=== PATIENT | female | born 1980 | race Asian ===

== ENCOUNTER 2018-11-05 07:29 | Emergency (ER) | payer BC ==
[2018-11-05 08:08] LABS: Absolute Lymphocytes (CBC) 1.2 K/uL (0.7-4.9); Absolute Monocytes 0.2 K/uL (0.1-1.3); Absolute Neutrophil 1.9 K/uL (1.8-8.0); Basophils % 1.4 % (0-1.3); Eosinophils % 2.7 % (0-4.4); Lymphocytes % 35.4 % (15.3-44.8); MPV 8.2 fL (7.6-11.3); Monocytes % 5.1 % (3.3-12.3); RBC Red Blood Cell Count 3.46 M/uL (3.86-4.86)
[2018-11-05 08:21] LABS: Potassium 3.7 mmol/L (3.5-5.1)
--- NOTE | 2018-11-05 11:25 | RAD REPORT ---
EXAM DESCRIPTION: US - Transvaginal Study Probe - 11/05/2018 9:20 am CLINICAL HISTORY: VAGINAL BLEEDING Pelvic pain. COMPARISON: PELVIS dated 07/20/2010 FINDINGS: The uterus is normal in size, shape and echotexture. The uterus measures 8.4 x 5.1 x 4.9 c m. An oblong 1-2 cm slightly complex circumscribed lesion is seen in the cervical canal. The endometrial stripe measures 11 mm, mildly thickened. Both ovaries are normal in size, shape and echotexture. The right ovary measures 2.4 x 2.2 x 1.1 cm. The left ovary measures 2.3 x 1.2 x 1.2 cm. No ovarian or parovarian lesions. No adnexal masses. Normal Doppler blood flow was demonstrated to both ovaries. No significant pelvic ascites. IMPRESSION: An oblong 1-2 cm slightly complex rounded lesion in the cervical canal is noted.Differen tial would include a cervical fibroid, polyp or mass. Followup direct visualization may be of value.
--- NOTE | 2018-11-05 11:34 | ER ---
Nurse's Notes [facility] Name: Earlene Lamas Age: 38 yrs Sex: Female : 1980 Arrival Date: 11/05/2018 Time: 07:33 Bed 13 Private MD: Luis Fernando Santillan H Diagnosis: Dysfunctional Uterine Bleeding;Uterine Mass, NOS Presentation: 11/05 07:47 Presenting complaint: Patient states: was put on control pills after having iw painful periods, started having bleeding for a month, was told by Dr. Hill to stop pills for one week, yesterday was having heavier bleeding and mild cramping. Transition of care: patient was not received from another setting of care. Onset of symptoms was September 2018. Risk Assessment: Do you want to hurt yourself or someone else? Patient reports no desire to harm self or others. Initial Sepsis Screen: Does the patient meet any 2 criteria? No. Patient's initial sepsis screen is negative. Does the patient have a suspected source of infection? No. Patient's initial sepsis screen is negative. Care prior to arrival: None. 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 - Social history:: Smoking status: Patient/guardian denies using tobacco. - Ebola Screening: : Patient negative for fever greater than or equal to 101.5 degrees Fahrenheit, and additional compatible Ebola Virus Disease symptoms Patient denies exposure to infectious person Patient denies travel to an Ebola-affected area in the 21 days before illness onset No symptoms or risks identified at this time. Screenin:09 Abuse screen: Denies threats or abuse. Denies injuries from another. Nutritional jl7 screening: No deficits noted. Tuberculosis screening: No symptoms or risk factors identified. Fall Risk IV access (20 points). Total Elizondo Fall Scale indicates No Risk (0-24 pts). Assessment: 08:09 General: Appears in no apparent distress. uncomfortable, Behavior is calm, cooperative, jl7 appropriate for age. Pain: Complains of pain in suprapubic area, right lower quadrant and left lower quadrant Pain does not radiate. Pain currently is 0 out of 10 on a pain scale. at worst was 8 out of 10 on a pain scale. Quality of pain is described as crampy, Is intermittent. Neuro: Level of Consciousness is awake, alert, obeys commands, Oriented to person, place, time, situation. Cardiovascular: Patient's skin is warm and dry. Respiratory: Airway is patent Respiratory effort is even, unlabored, Respiratory pattern is regular, symmetrical. GI: No signs and/or symptoms were reported involving the gastrointestinal system. : pt denies burning with urination Reports vaginal bleeding that is bright red, with clots, heavy flow since x 1 month. EENT: Derm: Skin is pink, warm \T\ dry. Musculoskeletal: No signs and/or symptoms reported regarding the musculoskeletal system. 09:00 Reassessment: Patient appears in no apparent distress at this time. No changes from jl7 previously documented assessment. Patient and/or family updated on plan of care and expected duration. Pain level reassessed. Patient is alert, oriented x 3, equal unlabored respirations, skin warm/dry/pink. 10:00 Reassessment: Patient appears in no apparent distress at this time. Patient and/or jl7 family updated on plan of care and expected duration. Pain level reassessed. Patient is alert, oriented x 3, equal unlabored respirations, skin warm/dry/pink. 11:00 Reassessment: Patient appears in no apparent distress at this time. Patient and/or jl7 family updated on plan of care and expected duration. Pain level reassessed. Patient is alert, oriented x 3, equal unlabored respirations, skin warm/dry/pink. Vital Signs: 07:51 BP 102 / 63; Pulse 79; Resp 16; Temp 97.8(TE); Pulse Ox 100% on R/A; Weight 48.99 kg; iw Height 5 ft. 1 in. (154.94 cm); Pain 0/10; 09:18 BP 91 / 58; Pulse 76; Resp 12; Pulse Ox 98% on R/A; mh5 12:07 BP 98 / 68; Pulse 75; Resp 16 S; Pulse Ox 99% on R/A; jl7 07:51 Body Mass Index 20.41 (48.99 kg, 154.94 cm) ED Course: 07:33 Patient arrived in ED. mr 07:33 Luis Fernando Santillan DO is Private Physician. mr 07:45 Lu Bartlett RN is Primary Nurse. jl7 07:45 Sarmad Alexander MD is Attending Physician. ps1 07:50 Triage completed. iw 07:51 Arm band placed on. iw 08:09 Patient has correct armband on for positive identification. Bed in low position. Call jl7 light in reach. Side rails up X 1. Pulse ox on. NIBP on. Warm blanket given. 08:09 Initial lab(s) drawn, by me, sent to lab. Inserted saline lock: 20 gauge in right jl7 antecubital area, using aseptic technique. Blood collected. 09:17 Ultrasound completed. Patient tolerated well. sg3 09:18 Transvaginal Study Probe In Process Unspecified. EDMS 09:34 Urine --Ancillary Sent. 5 09:34 Urine Dipstick-Ancillary Sent. 5 09:43 Urine --Ancillary (enter results) Sent. 5 09:43 Urine Dipstick--Ancillary (enter results) Sent. 5 11:32 Nabeel Hill MD is Referral Physician. ps1 12:07 No provider procedures requiring assistance completed. IV discontinued, intact, jl7 bleeding controlled, No redness/swelling at site. Pressure dressing applied. Administered Medications: No medications were administered Outcome: 11:34 Discharge ordered by . ps1 12:07 Discharged to home ambulatory. jl7 12:07 Condition: stable 12:07 Discharge instructions given to patient, Instructed on discharge instructions, follow up and referral plans. medication usage, Demonstrated understanding of instructions, follow-up care, medications, Prescriptions given X 1. 12:12 Patient left the ED. jl7 Signatures: Dispatcher [employer] Gayathri Agarwal Khadra Garcia, RN RN Sheridan Villatoro 5 Lu Bartlett, AILYN RN 7 Sarmad Alexander MD MD ps1 Shonna Dennis sg3
--- NOTE | 2018-11-05 11:34 | EDPHYS ---
Physician Documentation [facility] Name: Earlene Lamas Age: 38 yrs Sex: Female : 1980 Arrival Date: 11/05/2018 Time: 07:33 Bed 13 Private MD: Luis Fernando Santillan H ED Physician Sarmad Alexander HPI: 11/05 07:57 This 38 yrs old Female presents to ER via Ambulatory with complaints of Vaginal ps1 Bleeding. 07:[address] Hill was started on a levonorgestrel taper. Improved initially, now ps1 having increased bleeding. Worse over the last couple of days. Now changing pads every 2 hours. States she has been lightheaded. Non-painful. . 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 - Social history:: Smoking status: Patient/guardian denies using tobacco. - Ebola Screening: : Patient negative for fever greater than or equal to 101.5 degrees Fahrenheit, and additional compatible Ebola Virus Disease symptoms Patient denies exposure to infectious person Patient denies travel to an Ebola-affected area in the 21 days before illness onset No symptoms or risks identified at this time. ROS: 07:57 Constitutional: Negative for fever, chills, and weight loss, Eyes: Negative for injury, ps1 pain, redness, and discharge, Cardiovascular: Negative for chest pain, palpitations, and edema, Respiratory: Negative for shortness of breath, cough, wheezing, and pleuritic chest pain, Abdomen/GI: Negative for abdominal pain, nausea, vomiting, diarrhea, and constipation, Back: Negative for injury and pain, MS/Extremity: Negative for injury and deformity, Skin: Negative for injury, rash, and discoloration, Psych: Negative for depression, anxiety, suicide ideation, homicidal ideation, and hallucinations. 07:57 : Positive for vaginal bleeding. 07:57 Neuro: Positive for lightheaded. Exam: 07:57 Constitutional: This is a well developed, well nourished patient who is awake, alert, ps1 and in no acute distress. Head/Face: Normocephalic, atraumatic. Eyes: Pupils equal round and reactive to light, extra-ocular motions intact. Lids and lashes normal. Conjunctiva and sclera are non-icteric and not injected. Chest/axilla: Normal chest wall appearance and motion. Nontender with no deformity. No lesions are appreciated. Cardiovascular: Regular rate and rhythm. No gallops, murmurs, or rubs. Normal PMI, no JVD. No pulse deficits. Respiratory: Lungs have equal breath sounds bilaterally, clear to auscultation and percussion. No rales, rhonchi or wheezes noted. No increased work of breathing, no retractions or nasal flaring. Abdomen/GI: Soft, non-tender, with normal bowel sounds. No distension or tympany. No guarding or rebound. No evidence of tenderness throughout. Skin: Warm, dry with normal turgor. Normal color with no rashes, no lesions, and no evidence of cellulitis. MS/ Extremity: Pulses equal, no cyanosis. Neurovascular intact. Full, normal range of motion. Neuro: Awake and alert, GCS 15, oriented to person, place, time, and situation. Cranial nerves II-XII grossly intact. Sensory grossly intact. Psych: Awake, alert, with orientation to person, place and time. Behavior, mood, and affect are within normal limits. Vital Signs: 07:51 BP 102 / 63; Pulse 79; Resp 16; Temp 97.8(TE); Pulse Ox 100% on R/A; Weight 48.99 kg; iw Height 5 ft. 1 in. (154.94 cm); Pain 0/10; 09:18 BP 91 / 58; Pulse 76; Resp 12; Pulse Ox 98% on R/A; mh5 12:07 BP 98 / 68; Pulse 75; Resp 16 S; Pulse Ox 99% on R/A; jl7 07:51 Body Mass Index 20.41 (48.99 kg, 154.94 cm) iw MDM: 08:19 Patient medically screened. ps1 11:35 Data reviewed: vital signs, nurses notes, lab test result(s), radiologic studies, and ps1 as a result, I will discharge patient. ED course: patient has undifferentiated mass in uterus, likely fibroid. Needs hysteroscopy. Will rx Megace for DUB. Refer back to Liz. Hgb stable. Stable for discharge. . 11/05 07:57 Order name: Basic Metabolic Panel; Complete Time: 08:22 ps1 11/05 07:57 Order name: CBC with Diff; Complete Time: 08:19 ps1 11/05 08:25 Order name: Urine Dipstick--Ancillary (enter results) ag 11/05 08:25 Order name: Urine --Ancillary (enter results) ag 11/05 08:25 Order name: Urine Dipstick-Ancillary EDHI 11/05 08:25 Order name: Urine --Ancillary EDHI 11/05 07:57 Order name: Urine Test (obtain specimen); Complete Time: 08:25 ps1 11/05 07:57 Order name: IV Saline Lock; Complete Time: 08:06 ps1 11/05 07:57 Order name: Labs collected and sent; Complete Time: 08:06 ps1 11/05 07:57 Order name: NPO; Complete Time: 08:06 ps1 11/05 07:57 Order name: Urine Dipstick-Ancillary (obtain specimen); Complete Time: 08:25 ps1 11/05 08:13 Order name: Transvaginal Study Probe; Complete Time: 11:28 EDMS Administered Medications: No medications were administered Disposition: 11/05/18 11:34 Discharged to Home. Impression: Dysfunctional Uterine Bleeding, Uterine Mass, NOS. - Condition is Stable. - Discharge Instructions: Uterine Fibroids, Dysfunctional Uterine Bleeding. - Medication Reconciliation Form, Thank You Letter, Antibiotic Education, Prescription Opioid Use form. - Follow up: Nabeel Hill MD; When: 1 week; Reason: Further diagnostic work-up, Recheck today's complaints, Continuance of care. Follow up: Emergency Department; When: As needed; Reason: Worsening of condition. - Problem is an ongoing problem. - Symptoms have worsened. Signatures: Dispatcher [employer] EDMS Khadra Garcia, RN Lu Guerra RN RN jl7 Sarmad Alexander MD MD ps1 Corrections: (The following items were deleted from the chart) 08:13 07:57 Transvaginal Ob+US.RAD.BRZ ordered. EDHI EDHI 12:12 11:34 11/05/2018 11:34 Discharged to Home. Impression: Dysfunctional Uterine Bleeding; jl7 Uterine Mass, NOS. Condition is Stable. Forms are Medication Reconciliation Form, Thank You Letter, Antibiotic Education, Prescription Opioid Use. Follow up: Nabeel Hill; When: 1 week; Reason: Further diagnostic work-up, Recheck today's complaints, Continuance of care. Follow up: Emergency Department; When: As needed; Reason: Worsening of condition. Problem is an ongoing problem. Symptoms have worsened. ps1
[2018-11-05 11:54] LABS: Urine Blood TRACE (NEG); Urine Glucose NEGATIVE (NEG); Urine Protein TRACE (NEG); Urine Specific Gravity >1.030 (1.005-1.030); Urine pH 5.5 (5.0-7.0)
== END 2018-11-05 12:12 | disposition home or self-care (01) ==
LOC: ER 07:29
DX: N93.8 Other specified abnormal uterine and vaginal bleeding (principal); N85.9 Noninflammatory disorder of uterus, unspecified; Z79.3 Long term (current) use of hormonal contraceptives
CPT/HCPCS: 36415; 76830; 80048; 81003; 81025; 85025; 99284

== ENCOUNTER 2018-11-10 09:38 | Day surgery (SDC) | payer BC ==
[2018-11-09 12:05] LABS: Absolute Lymphocytes (CBC) 1.7 K/uL (0.7-4.9); Absolute Monocytes 0.2 K/uL (0.1-1.3); Absolute Neutrophil 1.9 K/uL (1.8-8.0); Basophils % 1.1 % (0-1.3); Eosinophils % 1.2 % (0-4.4); Hematocrit 25.7 % (36.0-45.0); Lymphocytes % 42.5 % (15.3-44.8); MPV 8.3 fL (7.6-11.3); Monocytes % 6.1 % (3.3-12.3); RBC Red Blood Cell Count 2.78 M/uL (3.86-4.86)
--- NOTE | 2018-11-09 13:46 | PREOPHP ---
Date of Admission: 11/09/2018 History Of Present Illness: Ms. Lamas is a 38-year-old [place]i female, 3, para 3-0-0-3, who will be admitted for treatment of menorrhagia, prolapsed uterine leiomyomata. Ms. Lamas has had some difficulties with increasing cramping and discomfort, was placed on oral contraceptives for thi s, did not seem to respond, went to the emergency room. Ultrasound through them showed now a prolaps ed uterine leiomyomata. This is confirmed on office exam. Because of this, she will be admitted for excision of prolapsed leiomyomata. Hysteroscopy, D and C of the uterine endometrium. Past Medical History: Includes 3 prior vaginal deliveries without complications. She has also had b reast augmentation surgery and no other hospitalizations, accidents, illnesses, injuries. She has be en on oral contraceptives recently and Megace through the emergency room, although this has not made much of a difference in her bleeding. She is started on iron supplementation recently. Allergies: SHE HAS NO KNOWN ALLERGIES. Social History: She does not smoke. Family History: Noncontributory. Review of Systems: She reports no recent cough, cold, fever, or chills. No recent nausea or vomiting. She denies seein g breast lumps or breast knots. She denies any bowel or bladder issues. Other than vaginal bleeding , she has no other major complaints. Physical Examination: General: Petite [place] female, in no apparent distress. Neck: Supple without adenopathy or thyromegaly. Lungs: Clear. Cardiac: Regular rate and rhythm without murmurs. Breasts: Not examined. Abdomen: Nontender without organosplenomegaly. Pelvic: Normal female external genitalia. Vaginal wall is pink, rugated. Blood present. Speculum exam reveals prolapsed uterine leiomyomata. Bimanual, no abnormalities other than leiomyomata. Extremities: No cyanosis, clubbing, or edema. Impression: Menorrhagia, probably secondary to prolapsed leiomyomata. Plan: The patient will be admitted for excision of leiomyomata, hysteroscopy, D and C. Risks and be nefits are discussed, and she has signed operative permit in my presence. DAYSI/JOSELUIS Voice ID: [id number]
[~2018-11-10 09:38] MED LIST: DOXYCYCLINE 200 MG in NA CHLORIDE 0.9% 250 ML IVPB SCH
[2018-11-10] MEDS ORDERED: Ringers Lactate 1,000 ML IV ONE (09:56)
[2018-11-10] MEDS ORDERED: EPOETIN ALFA 4,000 UNIT/ML VIAL ONE (09:58)
[2018-11-10] MEDS ORDERED: PROPOFOL 200 MG/20 ML VIAL IV ONE (10:47)
[2018-11-10] MEDS ORDERED: FENTANYL CITR 100 MCG/2 ML ONE (10:48)
[2018-11-10] MEDS ORDERED: LIDOCAINE 2% MPF 5 ML VIAL ONE (10:48)
[2018-11-10] MEDS ORDERED: MIDAZOLAM HCL 2 MG/2 ML INJ ONE (10:48)
[2018-11-10] MEDS ORDERED: VASOPRESSIN 20 UNIT/ML VIAL ONE (10:49)
[2018-11-10] MEDS ORDERED: DEXAMETHASONE 10 MG/ML VIAL ONE (11:33)
--- NOTE | 2018-11-10 11:39 | P.BOP ---
Preoperative diagnosis: Prolapsed lieomyomata, menorrhagia, anemia Postoperative diagnosis: same Primary procedure: Excision of myoma, curretage of endometrium Estimated blood loss: Less than 5ml Specimen: myoma, endometrial currettings Anesthesia: General Complications: None Transferred to: Recovery Room Condition: Good
--- NOTE | 2018-11-10 22:31 | OP ---
Surgeon: Nabeel Hill MD Preoperative Diagnosis: Prolapsed leiomyomata with menorrhagia. Procedure: Excision of myoma, curettage of uterine endometrium. Postoperative Diagnosis: Prolapsed leiomyomata with menorrhagia. Description Of Procedure: After satisfactory level of general anesthesia was obtained, the patient w as prepped and draped in the usual fashion in high leg holders. A weighted speculum placed in commercial interior designer ior vagina, cervix, anterior retraction revealed large prolapsed leiomyomata. A Rosa clamp was sandy pro around the stalk above the myoma. This was excised. A stay suture of 2-0 Vicryl was placed. Cu rettage of the endometrium, productive minimal tissue, suture cut, allowing tail extending beyond the cervix, in case bleeding had been encountered. The patient was awakened and taken to recovery room in satisfactory condition. Sponge and needle counts correct x2. Anesthesia: 1.DIANA Jensen. 2.Dr. Ulisses Costa. Ms. Meier received doxycycline 200 mg IV piggyback for antibiotic prophylaxis. DAYSI/JOSELUIS Voice ID: [id number] Report ID: [id number]
--- NOTE | 2018-11-10 22:34 | DS ---
Date of Discharge: 11/10/2018 Final Hospital Discharge Diagnosis: Prolapsed uterine leiomyomata with menorrhagia. Complications: None. Procedures: Excision of leiomyomata, curettage of the endometrium. Hospital Course: The patient is a 38-year-old, , Marshallese female, who underwent excision of prolapsed uterine leiomyomata and curettage of the endometrium for menorrhagia. She was dismissed t o be seen back in my office in 2 weeks with usual post D and C activity restrictions. Lab work inclu ded a negative serum test. Admission hemoglobin and hematocrit of 8.9 and 25.7. She was di smissed to take Integra iron supplement twice daily. DAYSI/JOSELUIS Voice ID: [id number] Report ID: [id number]
== END 2018-11-10 13:20 | disposition home or self-care (01) ==
LOC: OR 09:38
PROVIDERS: ATTEND Specialist
PROC: 0UDB7ZX Extraction of Endometrium, Via Natural or Artificial Opening, Diagnostic (ICD-10-PCS; 2018-11-10)
PROC: 0UB97ZZ Excision of Uterus, Via Natural or Artificial Opening (ICD-10-PCS; principal; 2018-11-10 11:00)
DX: D25.9 Leiomyoma of uterus, unspecified (principal); N92.0 Excessive and frequent menstruation with regular cycle; D64.9 Anemia, unspecified
CPT/HCPCS: 36415; 84703; 85025; 88305; J0885; J1100; J2250; J2704; J3010